=== PATIENT | male | born 1950 | race Caucasian/White ===

== ENCOUNTER 2022-07-22 06:52 | Outpatient (CLI) | payer OTHER | END 2022-07-22 21:09 | disposition home or self-care (01) | LOC: SNM 06:52 | PROVIDERS: ATTEND Urology Pediatric Urology | DX: C61 Malignant neoplasm of prostate (principal) | CPT/HCPCS: 78306; A9503 ==

== ENCOUNTER 2022-10-28 09:42 | Outpatient (CLI) | payer OTHER ==
[2022-10-28] MEDS ORDERED: CYSTOGRAFIN 300 ML INFUS..BTL UR ONE (09:57)
== END 2022-10-28 18:26 | disposition home or self-care (01) ==
LOC: SRD 09:42
PROVIDERS: ATTEND Urology
DX: C61 Malignant neoplasm of prostate (principal)
CPT/HCPCS: 74430; 51600; Q9958